=== PATIENT | male | born 1970 | race Asian ===

== ENCOUNTER 2019-10-27 07:18 | Outpatient (CLI) | payer BC ==
[2019-10-30] MEDS ORDERED: LIDOCAINE HCL 1% 20 ML VIAL ONE (06:32)
[2019-10-30] MEDS ORDERED: EPINEPHRINE 1 MG/1 ML AMP ONE (06:32)
[2019-10-30] MEDS ORDERED: BUPIVACAINE PF 0.5% 30 ML VIAL ONE (06:33)
[2019-10-30] MEDS ORDERED: BALANCED SALT IRRIG SOLN COMB1 0 ML ONE (06:34)
[2019-10-30] MEDS ORDERED: TETRACAINE HCL 0.5% OPHT DROP 2 ML BOTTLE ONE (06:34)
[2019-10-30] MEDS ORDERED: NEO/POLYMYX B/DEXAME OPHT OINT 3.5 GM TUBE ONE (06:46)
[2019-10-30] MEDS ORDERED: TRYPAN BLUE 0.5 ML DISP.SYRIN ONE (06:47)
[2019-10-30] MEDS ORDERED: PILOCARPINE 1% OPHT DROP 15 ML BOTTLE ONE (06:49)
[2019-10-30] MEDS ORDERED: BALANCED SALT IRRIG SOLN COMB2 15 ML IRRIG.SOLN ONE (06:54)
[2019-10-30] MEDS ORDERED: LIDOCAINE 0.5% MPF 50 ML VIAL ONE (06:56)
== END 2019-10-27 23:59 | disposition home or self-care (01) ==
LOC: LAB 07:18
PROVIDERS: ATTEND Internal Medicine Gastroenterology
DX: Z01.812 Encounter for preprocedural laboratory examination (principal); Z11.59 Encounter for screening for other viral diseases

== ENCOUNTER 2019-10-30 11:19 | Day surgery (SDC) | payer BC, OTHER ==
[~2019-10-30 11:19] MED LIST: EPINEPHRINE IO ONE; [UNRECOGNIZED DRUG - OTHER] IO ONE
[2019-10-30 12:19] LABS: BASOPHILS % (AUTO) 0.9 % (0.0-2.0); EOSINOPHILS # (AUTO) 0.3 K/uL (0.0-0.7); HEMATOCRIT 34.3 % (36.7-47.1); HEMOGLOBIN 11.3 g/dL (12.5-16.3); LYMPHOCYTES # (AUTO) 1.8 K/uL (20.0-40.0); LYMPHOCYTES % (AUTO) 33.5 % (20.5-51.5); MEAN CORPUSCULAR HEMOGLOBIN 28.2 uug (23.8-33.4); MEAN CORPUSCULAR HGB CONC 33 g/dL (32.5-36.3); MEAN CORPUSCULAR VOLUME 85.6 fL (73.0-96.2); MONOCYTES # (AUTO) 0.4 K/uL (2.0-10.0); MONOCYTES % (AUTO) 6.9 % (0.0-11.0); NEUTROPHILS # (AUTO) 2.9 K/uL (1.8-8.9); NEUTROPHILS % (AUTO) 53.7 % (38.5-71.5); PLATELET COUNT (AUTO) 287 K/uL (152-348); WHITE BLOOD COUNT (AUTO) 5.4 K/uL (3.6-10.2)
[2019-10-30 12:23] LABS: *BILIRUBIN,URIN NEGATIVE (NEGATIVE); *BLOOD, URINE NEGATIVE (NEGATIVE); *CLARITY,URINE SLIGHTLY CLOUDY (CLEAR); *COLOR,URINE YELLOW (YELLOW); *KETONES,URINE NEGATIVE (NEGATIVE); *UROBILINOGEN,URINE 0.2 E.U./dl (NORMAL); LEUKOCYTE ESTERASE ,URINE NEGATIVE (NEGATIVE); NITRITE, URINE NEGATIVE (NEGATIVE); PH,URINE 5.5 (5.0-8.0); UGLUCOSE NEGATIVE (NEGATIVE)
[2019-10-30 12:29] LABS: CREATININE 0.9 mg/dL (0.6-1.3); POTASSIUM 4.2 mmol/L (3.5-5.1)
[2019-10-30 12:35] LABS: BILIRUBIN,TOTAL 0.5 mg/dL (0.2-1.0); TOTAL PROTEIN, SERUM 7.5 g/dL (6.4-8.2)
[2019-10-30] MEDS ORDERED: MIDAZOLAM HCL 2 MG/2 ML VIAL ONE (12:51)
[2019-10-30] MEDS ORDERED: PROPOFOL 200 MG/20 ML BOTTLE ONE (12:51)
[2019-10-30 14:56] LABS: BACTERIA,URINE FEW /HPF (NONE SEEN); RBC,URINE 0-3 /HPF (0-3); SQUAMOUS EPITHELIAL CELL,UR FEW /HPF (NONE SEEN); WBC,URINE NONE SEEN /HPF (0-3)
[2019-10-30 14:57] LABS: URINE AMORPHOUS URATE MODERATE /HPF
== END 2019-10-30 15:25 | disposition home or self-care (01) ==
LOC: DS 11:19
PROVIDERS: ATTEND Internal Medicine Gastroenterology
DX: Z12.11 Encounter for screening for malignant neoplasm of colon (principal); K57.30 Diverticulosis of large intestine without perforation or abscess without bleeding; K64.8 Other hemorrhoids; K63.5 Polyp of colon; K63.89 Other specified diseases of intestine; I10 Essential (primary) hypertension; E11.9 Type 2 diabetes mellitus without complications; E66.9 Obesity, unspecified; E78.5 Hyperlipidemia, unspecified; Z79.899 Other long term (current) drug therapy; Z98.890 Other specified postprocedural states
CPT/HCPCS: 36415; 85025; 85730; A4217; A4663; J0171; J2250; J3490; J3590; J7030; J7120